=== PATIENT | male | born 1975 | race African-American/Black ===

== ENCOUNTER 2023-01-13 20:06 | Emergency (ER) | payer MEDICAID ==
[~2023-01-13] VITALS: Ht 172.7 cm; Wt 107.0 kg
[2023-01-13 20:25] VITALS: BP 119/72; PULSE 80; RESP 18; TEMP 96.9; O2SAT 99
[2023-01-13] MEDS ORDERED: PRED20TA5 PO (21:48)
[2023-01-13] MEDS ORDERED: DIPH25TA53 PO (21:48)
[2023-01-13 21:57] VITALS: BP 142/75; PULSE 86; RESP 18; O2SAT 97
== END 2023-01-13 22:01 | disposition home or self-care (01) ==
LOC: MED 20:06
DX: R21 Rash and other nonspecific skin eruption (principal); L29.9 Pruritus, unspecified; E11.9 Type 2 diabetes mellitus without complications; I10 Essential (primary) hypertension; F12.90 Cannabis use, unspecified, uncomplicated; Z98.890 Other specified postprocedural states
CPT/HCPCS: 99283